=== PATIENT | male | born 1955 | race Caucasian/White ===

== ENCOUNTER → 2017-11-15 | Outpatient (CLI) | payer BC ==
[~2017-11-15] MED LIST: AMLODIPINE BESY10 MG PO; AMLODIPINE BESYL5 MG PO; BISOPROLOL-HCT1 EAC1 PO; CRESTOR10 MG PO; NORCO 10-325 T1 EACH; NORCO 10-325 T1 EACH PO; PAXIL10 MG PO; TAMSULOSIN HCL0.4 MG PO; VESICARE5 MG PO; ZOCOR80 MG PO
--- NOTE | 2017-11-15 17:52 | Diagnostic Imaging Report ---
PROCEDURE:X-RAY ABDOMEN - KUB COMPARISON:07/06/2017. INDICATIONS:KIDNEY STONE CHECK UP FINDINGS: Bowel: No dilatation. Moderate burden of stool throughout the colon particularly the hepatic and splenic flexures. Calcifications: Two calculi in the mid and lower pole of the left kidney measure up to 3 mm. There is a punctate calculus in the lower pole the right kidney. No calculi along the expected course of the ureters. Lung bases: Clear. Bones: Degenerative changes of the right hip are stable. Left hip prosthesis is stable. CONCLUSION: Two calculi in the left kidney and a single calculus in the right kidney as described above. Dictated by: Jrery Adams M.D. on 11/15/2017 at 17:52 Electronically approved by: Jerry Adams M.D. on 11/15/2017 at 17:52
== END | disposition home or self-care (01) ==
LOC: RAD 13:47
PROVIDERS: ATTEND Urology
DX: N20.0 Calculus of kidney (principal)
CPT/HCPCS: 74018

== ENCOUNTER → 2017-12-29 | Outpatient (CLI) | payer BC ==
--- NOTE | 2017-12-29 12:23 | Diagnostic Imaging Report ---
PROCEDURE:ABDOMEN-1VIEW (KUB) TECHNIQUE:Supine AP abdomen totaling 2 radiographs INDICATION:Kidney stones COMPARISON:Patients [facility], DX, ABDOMEN-1VIEW (KUB), 11/15/2017, 14:39. FINDINGS: See conclusion. CONCLUSION: 1. Stable 3 mm stones at the left mid and inferior pole and right inferior pole. No new conspicuous calcifications. 2. Large stool volume. 3. No ascites organomegaly. Intact skeleton. Dictated by: Vitor Napier M.D. on 12/29/2017 at 12:24 Electronically approved by: Vitor Napier M.D. on 12/29/2017 at 12:24
== END ==
LOC: RAD 10:24
PROVIDERS: ATTEND Urology
DX: N20.0 Calculus of kidney (principal)
CPT/HCPCS: 74018

== ENCOUNTER → 2018-03-24 | Outpatient (CLI) | payer BC ==
--- NOTE | 2018-03-24 18:22 | Diagnostic Imaging Report ---
PROCEDURE:X-RAY ABDOMEN - KUB COMPARISON:None. INDICATIONS:CALCULUS OF THE KIDNEY FINDINGS: Nonobstructive bowel gas pattern. Stable 3 mm radiopaque nonobstructing calculi in the mid and inferior aspect of the left renal shadow and inferior pole of the right renal shadow. Stable 2 mm nonobstructing calculus in the mid aspect of the right renal shadow. No radiopaque densities project over the expected course of the ureters or bladder. No acute bony abnormalities. Left total hip replacement. CONCLUSION: Stable bilateral, nonobstructive renal stone burden. Teofilo Corrales M.D. Dictated by: Teofilo Corrales M.D. on 03/24/2018 at 18:27 Electronically approved by: Teofilo Corrales M.D. on 03/24/2018 at 18:27
== END ==
LOC: RAD 12:20
PROVIDERS: ATTEND Urology
DX: N20.0 Calculus of kidney (principal)
CPT/HCPCS: 74018

== ENCOUNTER 2018-07-23 17:56 | Emergency (ER) | payer BC ==
[~2018-07-23] VITALS: Ht 172.7 cm; Wt 81.6 kg
--- OUTSIDE RECORDS SUMMARY | 2018-07-23 18:00 | XMS REPORT ---
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 Allergies, Adverse Reactions, Alerts This patient has no known allergies or adverse reactions. Medications This patient has no known medications. Results Test Description Test Time Test Comments Text Results Atomic Results Result Comments ABDOMEN-1VIEW (KUB) 2018-03-24 18:27:00 [place] [address] Patient Name: PITA WHEELER MR #: [id number] : 1955 Age/Sex: 62/M Req #: [id number] Adm Physician: Ordered by: JOVANA MATHEW MD Report #: [id number] Location: [facility] Room/Bed: Procedure: [id number] DX/ABDOMEN-1VIEW (KUB) Exam Date: 03/24/18 Exam Time: 1240 REPORT STATUS: Signed PROCEDURE: X-RAY ABDOMEN - KUB COMPARISON: None. INDICATIONS: CALCULUS OF THE KIDNEY FINDINGS: Nonobstructive bowel gas pattern. Stable 3 mm radiopaque nonobstructing calculi in the mid and inferior aspect of the left renal shadow and inferior pole of the right renal shadow. Stable 2 mm nonobstructing calculus in the mid aspect of the right renal shadow. No radiopaque densities project over the expected course of the ureters or bladder. No acute bony abnormalities. Left total hip replacement. CONCLUSION: Stable bilateral, nonobstructive renal stone burden. Yuriy Corrales M.D. Dictated by: Yuriy Corrales M.D. on 03/24/2018 at 18:27 Electronically approved by: Yuriy Corrales M.D. on 03/24/2018 at 18:27 Dictated By: YURIY CORRALES MD 26 Transcribed By: ADRIEN on 03/24/181826 COPY TO: JOVANA MATHEW MD ABDOMEN-1VIEW (KUB) [place] [address] Patient Name: PITA WHEELER MR #: [id number] : 1955 Age/Sex: 61/M Req #: [id number] Adm Physician: Ordered by: JOVANA MATHEW MD Report #: [id number] Location: [facility] Room/Bed: Procedure: [id number] DX/ABDOMEN-1VIEW (KUB) Exam Date: 12/29/17 Exam Time: 1020 REPORT STATUS: Signed PROCEDURE: ABDOMEN-1VIEW (KUB) TECHNIQUE: Supine AP abdomen totaling 2 radiographs INDICATION: Kidney stones COMPARISON: [facility], DX, ABDOMEN-1VIEW (KUB), 11/15/2017, 14:39. FINDINGS: See conclusion. CONCLUSION: 1. Stable 3 mm stones at the left mid and inferior pole and right inferior pole. No new conspicuous calcifications. 2. Large stool volume. 3. No ascites organomegaly. Intact skeleton. Dictated by: Leighann Napier M.D. on 12/29/2017 at 12:24 Electronically approved by: Leighann Napier M.D. on 12/29/2017 at 12:24 Dictated By: LEIGHANN NAPIER MD 1224 Transcribed By: ADRIEN on 12/29/17 1224 COPY TO: JOVANA MATHEW MD ABDOMEN-1VIEW (KUB) [place] [address] Patient Name: PITA WHEELER MR #: [id number] : 1955 Age/Sex: 61/M Req #: [id number] Adm Physician: Ordered by: JOVANA MATHEW MD Report #: [id number] Location: [facility] Room/Bed: Procedure: [id number] DX/ABDOMEN-1VIEW (KUB) Exam Date: 11/15/17 Exam Time: 1346 REPORT STATUS: Signed PROCEDURE: X-RAY ABDOMEN - KUB COMPARISON: 07/06/2017. INDICATIONS: KIDNEY STONE CHECK UP FINDINGS: Bowel: No dilatation. Moderate burden of stool throughout the colon particularly the hepatic and splenic flexures. Calcifications: Two calculi in the mid and lower pole of the left kidney measure up to 3 mm. There is a punctate calculus in the lower pole the right kidney. No calculi along the expected course of the ureters. Lung bases: Clear. Bones: Degenerative changes of the right hip are stable. Left hip prosthesis is stable. CONCLUSION: Two calculi in the left kidney and a single calculus in the right kidney as described above. Dictated by: Rita Adams M.D. on 11/15/2017 at 17:52 Electronically approved by: Rita Adams M.D. on 11/15/2017 at 17:52 Dictated By: RITA ADAMS MD 51 Transcribed By: ADRIEN on 11/15/171751 COPY TO: JOVANA MATHEW MD ABDOMEN-1VIEW (KUB) [place] [address] Patient Name: PITA WHEELER MR #: [id number] : 1955 Age/Sex: 61/M Req #: [id number] Adm Physician: Ordered by: JOVANA MATHEW MD Report #: [id number] Location: [facility] Room/Bed: Procedure: [id number] DX/ABDOMEN-1VIEW (KUB) Exam Date: Exam Time: REPORT STATUS: Signed EXAM: Abdomen 2 Views INDICATION: COMPARISON: KUB dated 12/04/2016 FINDINGS: Nonobstructive bowel gas pattern. No signs of pneumoperitoneum. Bilateral renal calculi are again seen, the largest in right inferior pole measuring 9 mm. No acute osseous abnormality. Degenerative changes of right hip. A status post left hip arthroplasty. IMPRESSION: 1. Bilateral renal calculi, the largest on today's exam measures 9 mm in the right inferior pole. 2. Nonobstructive bowel gas pattern. Signed by: Dr. Kartik Rodriguez MD on 07/06/2017 12:33 PM Dictated By: KARTIK RODRIGUEZ MD 123 Transcribed By: CAROLINA on 07/06/17 123 COPY TO: JOVANA MATHEW MD
--- OUTSIDE RECORDS SUMMARY | 2018-07-23 18:00 | XMS REPORT | Clinical Summary ---
Author Author [facility] Address Unknown Phone Unavailable Care Team Providers Care Grey Tender Name Role Phone Ellen Clark DO PCP Allergies No Known Allergies Medications No known medications Active Problems Not on file Social History Date Tobacco Use Types Packs/Day Years Used Former Smoker Smokeless Tobacco: Chew Current User Alcohol Use Drinks/Week oz/Week Comments No Sex Assigned at Date Recorded Not on file Industry Job Start Date Occupation Not on file Not on file Not on file Travel End Travel History Travel Start No recent travel history available. Last Filed Vital Signs Not on file Plan of Treatment Health Maintenance Due Date Last Done Comments COLON CANCER SCREENING 2004 SHINGRIX VACCINE (1 of 2) 2004 ZOSTER VACCINE 2014 INFLUENZA VACCINE 04/06/2018 Results Not on fileafter 07/22/2017 Insurance Payer Benefit Subscriber ID Type Phone Address Plan / Group CIGNA CIGNA xxxxxxxxxxx HMO HMO/POS Advance Directives Patient has advance care planning documents on file. For more information, momo e contact: [facility] Damon [address] [place] [address]
[2018-07-23 19:16] LABS: BILIRUBIN,URINE NEGATIVE (NEGATIVE); CLARITY,URINE CLEAR (CLEAR); COLOR,URINE YELLOW (YELLOW); KETONES,URINE NEGATIVE (NEGATIVE); LEUKOCYTE ESTERASE ,URINE NEGATIVE (NEGATIVE); NITRITE,URINE NEGATIVE (NEGATIVE); PROTEIN,URINE DIPSTICK NEGATIVE (NEGATIVE); URINE UROBILINOGEN 0.2 mg/dL (0.2 - 1)
[2018-07-23 19:28] LABS: AMORPHOUS SEDIMENT,URINE FEW (FEW); BACTERIA,URINE FEW /HPF; EPITHELIAL CELLS,URINE RARE /LPF; WBC,URINE (MAN) 0-5 /HPF (0-5)
[2018-07-23] MEDS ORDERED: KETOROLAC TROMETHAMINE 30 MG/ML VIAL IV STA (19:37)
[2018-07-23] MEDS ORDERED: ONDANSETRON HCL INJ 2 MG/ML VIAL IV STA (19:37)
[2018-07-23 19:58] LABS: BASOPHILS % 0.6 % (0.0-1.0); EOSINOPHILS # (AUTO) 0.2 (0.0-0.4); EOSINOPHILS % 3.1 % (0.0-6.0); HEMATOCRIT 51.6 % (38.2-49.6); HEMOGLOBIN 17.4 g/dL (14.0-18.0); LYMPHOCYTES # (AUTO) 1.7 (1.0-3.2); LYMPHOCYTES % 25.5 % (18.0-39.1); MEAN CORPUSCULAR HEMOGLOBIN 30.9 pg (28-32); MEAN CORPUSCULAR HGB CONC 33.7 g/dL (31-35); MEAN CORPUSCULAR VOLUME 91.7 fL (81-99); MONOCYTES # (AUTO) 0.4 (0.2-0.8); MONOCYTES % 6.8 % (4.4-11.3); NEUTROPHILS # (AUTO) 4.1 (2.1-6.9); NEUTROPHILS % 63.5 % (38.7-80.0); PLATELET COUNT 138 x10e3/uL (140-360); RED BLOOD COUNT 5.63 x10e6/uL (4.3-5.7)
--- NOTE | 2018-07-23 20:18 | Diagnostic Imaging Report ---
EXAM: CT ABDOMEN AND PELVIS without IV CONTRAST INDICATION: Left flank pain radiating to left groin COMPARISON: CT of the abdomen and pelvis without IV contrast June 20, 2012 TECHNIQUE: The abdomen and pelvis were scanned using a multidetector helical scanner. Coronal and sagittal reformations were obtained. Dose modulation, iterative reconstruction, and/or weight based adjustment of the mA/kV was utilized to reduce the radiation dose to as low as reasonably achievable. Renal stone protocol performed. IV Contrast: None Oral Contrast: None CTDIvol has been reviewed. It is below the limits set by the Radiation Protocol Committee (RPC). FINDINGS: LOWER THORAX: No consolidations LIVER: No masses BILIARY: Normal gallbladder. No ductal dilation. SPLEEN: No masses PANCREAS: No masses ADRENALS: No nodules RIGHT KIDNEY: There are at least 6 stones throughout the right kidney, the largest is in the inferior pole measuring 3 mm. No hydronephrosis. No ureteral stones. LEFT KIDNEY: There are greater than 10 stones throughout the left kidney. The largest is in the superior pole measuring 3 mm. No hydronephrosis. No ureteral stones. GI TRACT: No wall thickening or obstruction. VESSELS: Mild atherosclerotic changes of the abdominal aorta without aneurysm. PERITONEUM/RETROPERITONEUM: No free air or fluid LYMPH NODES: No lymphadenopathy REPRODUCTIVE ORGANS: Normal BLADDER: Normal SOFT TISSUES: Normal BONES: Left hip arthroplasty. IMPRESSION: Bilateral nephrolithiasis. No hydronephrosis. Signed by: Dr. Sofía Bright M.D. on 07/23/2018 8:15 PM
[2018-07-23 20:22] LABS: ALANINE AMINOTRANSFERASE 19 IU/L (0-55); ALBUMIN 3.6 g/dL (3.5-5.0); ALBUMIN/GLOBULIN RATIO 1.5 (0.8-2.0); ALKALINE PHOSPHATASE 50 IU/L (40-150); ANION GAP 14.4 mmol/L (8-16); BLOOD UREA NITROGEN 17 mg/dL (7-26); BUN/CREATININE RATIO 15 (6-25); CALCIUM 8.4 mg/dL (8.4-10.2); CARBON DIOXIDE 26 mmol/L (22-29); CHLORIDE 104 mmol/L (98-107); CREATININE, SERUM 1.16 mg/dL (0.72-1.25); EST GLOMERULAR FILTRATION RATE > 60 ML/MIN (60-); GLUCOSE 85 mg/dL (74-118); POTASSIUM 3.4 mmol/L (3.5-5.1); SODIUM 141 mmol/L (136-145)
== END 2018-07-23 20:59 | disposition home or self-care (01) ==
LOC: ER 17:56
DX: R10.32 Left lower quadrant pain (principal); R11.0 Nausea; M54.5 Low back pain; N20.0 Calculus of kidney; I10 Essential (primary) hypertension; E78.00 Pure hypercholesterolemia, unspecified
CPT/HCPCS: 36415; 74176; 80053; 81001; 85025; 99284; J1885; J2405

== ENCOUNTER → 2018-09-08 | Outpatient (CLI) | payer BC ==
--- NOTE | 2018-09-08 13:50 | Diagnostic Imaging Report ---
Exam: KUB - 2 views Clinical History: Known renal stones. Comparison: Renal ultrasound 07/25/[address] Abdomen/Pelvis 07/23/18 Findings: Bilateral 2 to 3 mm calcifications project over bilateral kidneys. Largest calcification measures 4 mm in the right lower pole kidney. No evidence of calcification overlying the expected location of the ureters. Partially seen post surgical changes status post left total hip arthroplasty. No acute osseous abnormality. Nonobstructive bowel gas pattern. Impression: Bilateral renal stones, largest measuring up to 4 mm in the right lower pole. Signed by: Dr. Virginia Kinsey MD on 09/08/2018 1:47 PM
== END ==
LOC: RAD 11:03
PROVIDERS: ATTEND Urology
DX: N20.0 Calculus of kidney (principal)
CPT/HCPCS: 74018

== ENCOUNTER → 2018-12-12 | Outpatient (CLI) | payer BC ==
--- NOTE | 2018-12-12 09:57 | Diagnostic Imaging Report ---
Exam: KUB. Clinical History: Calculus of kidney Comparison: September 08, 2018 Findings: Bilateral 2 to 3 mm calcifications project over bilateral kidneys. Largest calcification measures 4 mm in the right lower pole kidney. No evidence of calcification overlying the expected location of the ureters. Partially seen post surgical changes status post left total hip arthroplasty. No acute osseous abnormality. Nonobstructive bowel gas pattern. Impression: Bilateral renal stones, largest measuring up to 4 mm in the right lower pole. Signed by: Dr. Bishnu Cohen M.D. on 12/12/2018 9:54 AM
== END ==
LOC: RAD 09:20
PROVIDERS: ATTEND Urology
DX: N20.0 Calculus of kidney (principal)
CPT/HCPCS: 74018

== ENCOUNTER → 2019-03-06 | Outpatient (CLI) | payer BC ==
[~2019-03-06] MED LIST changes: +FENTANYL CITRATE/PF 100MCG/2 ML INJ ONE
--- NOTE | 2019-03-06 13:06 | Diagnostic Imaging Report ---
Exam: KUB-2 views Clinical History: Renal calculus. Comparison: KUB 12/12/2018. Findings: Bilateral 2 to 3 mm renal calcifications. Largest aggregate calcifications within the right lower pole kidney measures 7 mm. No evidence of calcification overlying the expected location of the ureters. Partially seen post surgical changes status post left total hip arthroplasty. No acute osseous abnormality. Nonobstructive bowel gas pattern. Impression: Bilateral nephrolithiasis as above. Signed by: Dr. Virginia Kinsey MD on 03/06/2019 1:03 PM
== END ==
LOC: RAD 11:41
PROVIDERS: ATTEND Urology
DX: N20.0 Calculus of kidney (principal)
CPT/HCPCS: 74018

== ENCOUNTER → 2019-07-31 | Outpatient (CLI) | payer BC ==
[~2019-07-31] MED LIST changes: -FENTANYL CITRATE/PF 100MCG/2 ML INJ ONE
--- NOTE | 2019-07-31 11:41 | Diagnostic Imaging Report ---
Exam: KUB - 2 views Indication: Renal calculus Comparison: Multiple prior KUBs most recently of 03/06/2019 Findings: Again seen are multiple bilateral renal calculi, measuring up to 7 mm at the right lower pole and 3 mm at the left upper pole. These appear essentially unchanged compared to the prior KUB of 03/06/2019. Nonobstructive bowel gas pattern. No free air. Status post left total hip replacement. Moderate degenerative changes of the [place] right hip joint. Minimally visualized lung bases appear clear. Impression: Unchanged bilateral renal calculi measuring up to 7 mm on the right and 3 mm on the left. Signed by: Vince Lopez MD on 07/31/2019 11:38 AM
== END ==
LOC: RAD 11:00
PROVIDERS: ATTEND Urology
DX: N20.0 Calculus of kidney (principal)
CPT/HCPCS: 74018

== ENCOUNTER → 2020-01-22 | Outpatient (CLI) | payer MEDICARE ==
--- NOTE | 2020-01-22 10:32 | Diagnostic Imaging Report ---
Abdomen, 1 view. History: History of kidney stones. Comparison: 09/15/2019. Findings: Air is scattered throughout nondilated small and large bowel. Small calcific densities are again seen projected over the lower pole of the right kidney and mid and upper region of the left kidney without significant change.. The osseous structures are intact. Left hip replacement is again noted. IMPRESSION: Bilateral small renal calculi without significant change. Signed by: Alli Bowling on 01/22/2020 10:29 AM
== END ==
LOC: RAD 10:00
PROVIDERS: ATTEND Urology
DX: N20.0 Calculus of kidney (principal)
CPT/HCPCS: 74018

== ENCOUNTER 2020-06-18 10:03 | Emergency (ER) | payer MEDICARE ==
[~2020-06-18] VITALS: Ht 172.7 cm; Wt 81.6 kg
[2020-06-18] MEDS ORDERED: KETOROLAC TROMETHAMINE 30 MG/ML VIAL IV STA (10:29)
[2020-06-18] MEDS ORDERED: METOCLOPRAMIDE HCL 10 MG/2ML VIAL IV ONE (10:30)
[2020-06-18] MEDS ORDERED: DIPHENHYDRAMINE HCL INJ 50 MG/ML VIAL IV ONE (10:30)
[2020-06-18 11:25] LABS: BASOPHILS % 0.4 % (0.0-1.0); EOSINOPHILS % 0.3 % (0.0-6.0); HEMATOCRIT 51.3 % (38.2-49.6); HEMOGLOBIN 16.8 g/dL (14.0-18.0); LYMPHOCYTES # (AUTO) 0.7 (1.0-3.2); LYMPHOCYTES % 7.9 % (18.0-39.1); MEAN CORPUSCULAR HEMOGLOBIN 30.7 pg (28-32); MEAN CORPUSCULAR HGB CONC 32.7 g/dL (31-35); MEAN CORPUSCULAR VOLUME 93.8 fL (81-99); MONOCYTES # (AUTO) 0.5 (0.2-0.8); NEUTROPHILS # (AUTO) 7.9 (2.1-6.9); PLATELET COUNT 162 x10e3/uL (140-360); RED BLOOD COUNT 5.47 x10e6/uL (4.3-5.7); RED CELL DISTRIBUTION WIDTH 12.8 % (11.7-14.4)
--- NOTE | 2020-06-18 11:35 | Diagnostic Imaging Report ---
CT BRAIN WO HISTORY: Headache COMPARISON: None. TECHNIQUE: Noncontrast axial scans were obtained from skull base to the vertex. Coronal and sagittal reconstructions obtained from the axial data. One or more of the following dose reduction techniques were used: Automated exposure control, adjustment of the mA and/or kV according to patient size, and/or utilization of iterative reconstruction technique. DISCUSSION: Scalp/Skull: Right mastoidectomy changes. Otherwise, unremarkable. Brain sulci: Appropriate for patient's age. Ventricles: Normal in size and configuration. No hydrocephalus. Extra-axial spaces: No masses or fluid collections. Mild carotid siphon and vertebral artery calcifications are present. Parenchyma: Mild periventricular white matter hypodensities are likely chronic microvascular ischemic changes. Otherwise, no mass, hemorrhage, or large vascular territory acute infarct. Dural sinuses: No abnormal densities. Sellar/Suprasellar region: Intact. Skull base: Intact. Incidental findings: None. IMPRESSION: 1. No acute intracranial abnormalities. 2. Mild supratentorial chronic microvascular ischemic change. Signed by: Dr. Eric Haddad M.D. on 06/18/2020 11:32 AM
[2020-06-18 11:36] LABS: INR 0.97; PROTHROMBIN TIME 13.4 seconds (11.9-14.5)
--- OUTSIDE RECORDS SUMMARY | 2020-06-18 11:36 | XMS REPORT | Continuity of Care Document ---
Author Author [facility] t Organization [facility] Address [address] [place] [address] Phone Unavailable Care Team Providers Care Technician Anatomic Pathology Name Role Phone NONSTAFF PCP Unavailable RASHEL MATHEW Attphys Unavailable Larissa AGUIRRE, CEv Kiser Attphys Onesimo AGUIRRE, Haylee Au Attphys Noy AGUIRRE, James Cosby Attphys [phone] NELA ARREDONDO Attphys Unavailable Lanny MONSON Attphys Unavailable Payers Payer Name Policy Type Policy Number Effective Date Expiration Date S patricia BCBSBCBS CHOICE PPO/FEDERAL EMPL [id number] esentPPO [id number] 2019 00:00:00 [facility] Ppo [id number] 2008 00:00:00 [facility] Problems Condition Name Condition Details Condition Category Status Onset Date Resolution Date Last Treatment Date Treating Clinician Comments Source Calculus of kidney Calculus of kidney Disease Active 2019-08-16 00:00:0 0 [facility] Intractable vomiting Intractable vomiting Disease [facility] Problem Active [facility] Renal insufficiency Renal insufficiency Problem Active [facility] Urinary tract infection Urinary tract infection Problem Active [facility] Allergies, Adverse Reactions, Alerts Allergy Name Allergy Type Status Severity Reaction(s) Onset Date Inacti ve Date Treating Clinician Comments Source doxycycline DA Active U 2019-07-10 00:00:00 [facility] rifampin DA Active [place] 2019-07-10 00:00:00 [facility] doxycycline DA Active U 2019-07-07 00:00:00 [facility] Doxycycline Propensity to adverse reactions to drug Active 2019-03-16 00:00:00 Pt. states medicatio ns caused him to have body aches, nausea, and vomiting, shakes,and chills. Also hasn't been able to sleep. Rash Flaquito Damon Rifampin Propensity to adverse reactions to drug Active 2019-03-16 00:00:00 Pt. states medications cause d him to have body aches, nausea, and vomiting, shakes,and chills. Also hasn't been able to sleep. Rash Flaquito Damon No Known Drug Allergies DA Active U 2016-07-17 00:00:00 [facility] Family History Family Member Diagnosis Comments Start Date Stop Date Source Natural father Alzheimer's disease Shira Damon Natural mother Stroke [facility] Social History Social Habit Start Date Stop Date Quantity Comments Source History of tobacco use Cigarette Smoker Flaquito Damon Sex [facility] Cigarettes smoked current (pack per day) - Reported 00:00:00 2019-08-16 00:00:00 Flaquito Damon Cigarette pack-years 2019-08-16 00:00:00 2019-08-16 00:00:00 Flaquito Damon Tobacco use and exposure 2019-08-16 00:00:00 2019-08-16 00:00:00 Form er user Flaquito Damon Alcohol intake 2019-08-16 00:00:00 2019-08-16 00:00:00 Current drinker of alcohol (finding) Flaquito Damon Tobacco Comment 2019-08-10 00:00:00 2019-08-10 00:00:00 states quit 40 yrs ago lFaquito Damon Alcohol Comment 2019-08-10 00:00:00 2019-08-10 00:00:00 socially Flaquito Damon Smoking Status Start Date Stop Date Source Former smoker 2019-08-16 00:00:2019-08-16 00:00:00 Flaquito Damon Medications Ordered Medication Name Filled Medication Name Start Date Stop Da te Current Medication? Ordering Clinician Indication Dosage Frequency Signature (SIG) Comments Components Source amLODIPine (NORVASC) 10 mg tablet 2019-08-16 14:51:16 Yes 10mg QD Take 10 mg by mouth nightly. Flaquito muñiz escitalopram (LEXAPRO) 10 MG tablet 2019-08-16 14:51:16 Yes 10mg QD Take 10 mg by mouth every morning. Flaquito Borges ethodist rosuvastatin (CRESTOR) 10 MG tablet 2019-08-16 14:51:16 Yes 10mg QD Take 10 mg by mouth nightly. Flaquito Ruiz t potassium citrate (UROCIT-K) 10 mEq (1,080 mg) CR tablet 2019-02-20 00:00:00 Yes 10meq QD Take 10 mEq by mouth every morni ng. Flaquito Damon Amlodipine Besylate 10 Mg Tablet Amlodipine Besylate 10 Mg Tablet Yes 10 Daily [facility] Rosuvastatin Calcium (Crestor) 10 Mg Tab Rosuvastatin Calcium (Crestor) 10 Mg Tab Yes Bedtime [facility] Amlodipine Besylate 5 Mg Tablet, Unknown Dose Oral Am lodipine Besylate 5 Mg Tablet, Unknown Dose Oral 2016-02-15 00:00:00 No Daily [facility] Bisoprolol Fumarate/Hctz (Bisoprolol-Hct z 5-6.25 Mg Tab) 1 Each Tablet, Mg Oral Bisoprolol Fumarate/Hctz (Bisoprolol-Hct z 5-6.25 Mg Tab) 1 Each Tablet, Mg Oral 2015-07-19 00:00:00 No Bedtime [facility] Hydrocodone Bit/Acetaminophen ([place] 10-325 Tablet) 1 Each Tablet, Hydrocodone Bit/Acetaminophen ([place] 10-325 Tablet) 1 Each Tablet, 2015-07-07 3 00:00:00 No As Needed [facility] Paroxetine Hcl (Paxil) 10 Mg Tablet, Mg Oral Paroxeti ne Hcl (Paxil) 10 Mg Tablet, Mg Oral 2015-07-19 00:00:00 No Daily [facility] Simvastatin (Zocor) 80 Mg Tablet, Mg Oral Simvastatin (Zocor) 80 Mg Tablet, Mg Oral 2015-07-19 00:00:00 No Bedtime [facility] Solifenacin Succinate (Vesicare) 5 Mg Tablet, Oral S olifenacin Succinate (Vesicare) 5 Mg Tablet, Oral 2015-07-19 00:00:00 No Daily [facility] Tamsulosin Hcl 0.4 Mg Cap.er.24h, Mg Oral Tamsulosin Hcl 0.4 Mg Cap.er.24h, Mg Oral 2015-07-19 00:00:00 No Daily [facility] Hydrocodone Bit/Acetaminophen ([place] 10-325 Tablet) 1 Each Tablet, Oral Hydrocodone Bit/Acetaminophen ([place] 10-325 Tablet) 1 Each Tablet, Oral 2012-07-19 00:00:00 No Every 4 Hours [facility] Vital Signs Vital Name Observation Time Observation Value Comments Source Systolic blood pressure 2019-08-16 14:47:00 149 mm[Hg] Flaquito Damon Diastolic blood pressure 2019-08-16 14:47:00 97 mm[Hg] Flaquito Damon Heart rate 2019-08-16 14:47:00 70 /min Flaquito Damon Respiratory rate 2019-08-16 14:47:00 18 /min Favian Damon Oxygen saturation in Arterial blood by Pulse oximetry 2018-09 14:47:00 97 /min Flaquito Damon Body temperature 2019-08-16 14:14:00 36.44 Tatyana Favian Damon Body height 2019-08-16 10:59:00 172.7 cm Flaquito Damon Body weight 2019-08-16 10:59:00 87.726 kg Flaquito Damon BMI 2019-08-16 10:59:00 29.41 kg/m2 Flaquito Damon Procedures Procedure Date / Time Performed Performing Clinician Sourc e [place] AN ELECTIVE SUPRAGLOTTIC AIRWAY 2019-08-16 13:08:05 Abdelrahman Armenta EXTRACORPOREAL SHOCKWAVE LITHOTRIPSY (ESWL) 2019-08-16 12:57 :00 Rashel Mathew XR ABDOMEN 1 VW 2019-08-11 11:27:26 Rashel Mathew ethodist URINE CULTURE 2019-08-11 11:25:00 Camilo Woods GRAM STAIN 2019-08-11 11:25:00 Camilo Woods ECG 12-LEAD 2019-08-11 10:36:39 Camilo Woods URINALYSIS SCREEN AND MICROSCOPY, WITH REFLEX TO CULTURE 201 05-18-06 10:12:00 Camilo Woods HC COMPLETE BLD COUNT W/AUTO DIFF 2019-08-11 10:12:00 Ravi Woods HEMOGLOBIN A1C 2019-08-11 10:12:00 Camilo Woods TYPE AND SCREEN 2019-08-11 10:12:[address] of abdomen and pelvis without contrast 2018-07-23 00:00:0 0 SONIDO COLUNGA [facility] Plan of Care Planned Activity Planned Date Details Comments Source Future Scheduled Test 2020-04-06 00:00:00 INFLUENZA VACCINE [code = INFLUENZA VACCINE] [facility] Future Scheduled Test 2020-01-01 00:00:00 65+ PNEUMOCOCCAL V ACCINE (1 of 1 - PPSV23) [code = 65+ PNEUMOCOCCAL VACCINE (1 of 1 - PPSV23)] [facility] Future Scheduled Test 2004 00:00:00 COLONOSCOPY SCREEN ING [code = COLONOSCOPY SCREENING] [facility] Future Scheduled Test 2004 00:00:00 SHINGLES VACCINES (#1) [code = SHINGLES VACCINES (#1)] Flaquito Damon Encounters Start Date/Time End Date/Time Encounter Type Admission Type [facility] Care Department Encounter ID Source 2018-07-23 17:56:00 2018-07-23 20:59:00 Departed Emergency Room [address] [facility] [id number] [facility] 2018-03-24 12:20:00 2018-03-24 12:20:00 Registered Clinic [address] [facility] [id number] [facility] 2017-12-29 10:24:00 2017-12-29 10:24:00 Registered Clinic EL RASHEL MATHEW [facility] [id number] [facility] 2017-11-15 13:47:00 2017-11-15 13:47:00 Registered Clinic [address] [id number] [facility] Results Test Description Test Time Test Comments Results Result Comments Source ABDOMEN-1VIEW (KUB) 2020-04-18 09:07:00 [place] [address] Patient Name: PITA AUGUSTIN MR #: [id number] : 1955 Age/Sex: 64/M Req #: [id number] Adm Physician: Ordered by: RASHEL MATHEW MD Report #: [id number] Location: [facility] Room/Bed: Procedure: [id number] DX/ABDOMEN-1VIEW (KUB) Exam Date: 04/18/20 Exam Time: 0850 REPORT STATUS: Signed Exam: KUB - 2 views Indication: Renal calculi Comparison: Multiple prior KUBs, most recently 01/22/2020 Findings: No significant interval change in appearance of multiple scattered approximately 3 mm left renal calculi predominantly at the upper and mid pole and several right lower pole renal calculi which measure up to 3 mm. Nonobstructive bowel gas pattern. No free air. No acute osseous injury. Postoperative findings of left total hip replacement. Moderate degenerative changes of the huslia right hip joint. Impression: Unchanged bilateral renal calculi as above. Signed by: Maris Cat MD on 04/18/2020 9:09 AM Dictated By: MARIS CAT MD 8 Transcribed By: CAROLINA on 04/18/20908 COPY TO: RASHEL MATHEW MD ABDOMEN-1VIEW (KUB) 2020-01-22 10:26:00 [place] [address] Patient Name: PITA AUGUSTIN MR #: [id number] : 1955 Age/Sex: 64/M Req #: [id number] Adm Physician: Ordered by: RASHEL MATHEW MD Report #: [id number] Location: [facility] Room/Bed: Procedure: [id number] DX/ABDOMEN-1VIEW (KUB) Exam Date: 01/22/20 Exam Time: 1007 REPORT STATUS: Signed Abdomen, 1 view. History: History of kidney stones. Comparison: 09/15/2019. Findings: Air is scattered throughout nondilated small and large bowel. Small calcific densities are again seen projected over the lower pole of the right kidney and mid and upper region of the left kidney without significant change.. The osseous structures are intact. Left hip replacement is again noted. IMPRESSION: Bilateral small renal calculi without significant change. Signed by: Alli Bowling on 01/22/2020 10:29 AM Dictated By: ALLI BOWLING MD 1029 Transcribed By: CAROLINA on 01/22/20 1029 COPY TO: RASHEL MATHEW MD ABDOMEN-1VIEW (KUB) 2019-09-15 13:19:00 [place] [address] Patient Name: PITA AUGUSTIN MR #: [id number] : 1955 Age/Sex: 63/M Req #: [id number] Adm Physician: Ordered by: RASHEL MATHEW MD Report #: [id number] Location: [facility] Room/Bed: Procedure: [id number] DX/ABDOMEN-1VIEW (KUB) Exam Date: 09/15/19 Exam Time: 1235 REPORT STATUS: Signed Exam: KUB - 2 views Indication: Renal calculi Comparison: Multiple prior KUBs, most recently 07/31/2019 Findings: Again seen are multiple bilateral renal calculi, with a cluster of renal calculi at the right lower pole entering up to 8 mm. Scattered 2 and 3 mm renal calculi at the left upper pole and left mid pole. Nonobstructive bowel gas pattern. No free air. Status post left total hip replacement. Moderate degenerative changes of the huslia right hip joint. Phleboliths in the pelvis. Impression: Bilateral renal calculi as above. Signed by: Maris Cat MD on 09/15/2019 1:21 PM Dictated By: MARIS CAT MD Elec tronically Signed By: MARIS CAT MD on 09/15/19 1321 Transcribed By: CAROLINA on 09/15/19 1321 COPY TO: RASHEL MATHEW MD Airway 2019-08-16 13:08:05 Fadi Armenta CRNA 08/16/2019 1:08 PMAirwayPerformed by: Fadi Armenta CRNAAuthorized by: Angely Echols MD Location: ORUrgency: ElectiveDifficult Airway: No Anesthesiologist: Angely Echols MDResigoyot/TEST BORE HELPER/AA: Fadi Armenta CRNAPerformed by: resident/TEST BORE HELPER/AAPreoxygenated with 100% O2: Yes Mask Ventilation: Not attemptedFinal Airway Type: Supraglottic airwayFinal LMA: UniqueLMA Size: 5Number of Attempts at Approach: 1 Atraumatic, teeth intact Flaquito Damon Urine culture 2019-08-14 23:08:54 Test Item Urine culture isolate (test code = 34662-4) Mixed alonso <=10-3 col/ cc Specimen InformationSpecimen Source: UrineSpecimen Site: Clean catch [facility] [id number] 23:08:54* Test Item Value Reference Range Interpretation Comments Gram stain result (test code = 664-3) No WBC's or organisms seen. Specimen InformationSpecimen Source: UrineSpecimen Site: Clean catch [facility]Type and [id number] 14:11:00* Test Item Value Reference Range Interpretation Comments ABO grouping (test code = 883-9) O Rh type (test code = 57818-9) POS Antibody screen (test code = 890-4) NEG [facility] MethodistECG 12 [id number] 13:59:48* Test Item Value Reference Range Interpretation Comments Ventricular rate (test code = 253) 73 Atrial rate (test code = 255) 73 [place] interval (test code = 266) 176 QRSD interval (test code = 260) 84 QT interval (test code = 264) 378 QTC interval (test code = 265) 416 P axis 1 (test code = 267) 51 QRS axis 1 (test code = 268) 22 T wave axis (test code = 270) 37 EKG impression (test code = 273) Normal sinus rhythm-N ormal ECG-In automated comparison with ECG of 10-FEB-2019 07:42,-Nonspecific T wave abnormality no longer evident in Inferior leads-Nonspecific T wave abnormality no longer evide nt in Anterior leads- [place] MethodistXR Abdomen 1 [id number] 11:32:55Hm Interface, Radiology Results - 08/11/2019 11:36 AM CSTEXAMINATION: XR ABDOMEN 1 VWCLINICAL HISTORY: Z01.818 Encounter for other preprocedural examination, preopCOMPARISON: None.IMPRESSION:Nonspecific bowel gas pattern. No dilated loops of bowel. Severe osteoarthritic degenerative changes noted within the right hip. The patient is status post left hip arthroplasty.The lung bases are clear.[id number] MethodistHemoglobin [id number] 11:31:32* Test Item Value Reference Range Interpretation Comments Hemoglobin A1C (test code = 47349-9) 5.3 % 4-5.6 HbA1c cutoffs for diagnosing diabetes:4.0% - 5.6% = normal5.7% - 6.4% = increased risk for diabetes (prediabetes)9>=6.5% = [id number] for glycemic control (ADA 2016)< 7.0% Target for non adults with diabetes. More or less stringent targets may be appropriate for individual patients. <7.5% Target for Children and adolescents with type 1 diabetes. [place] MethodistCBC with platelet and [id number] 11:26:15* Test Item Value Reference Range Interpretation Comments WBC (test code = 97589-1) 5.67 4.50- 11.00 k/uL RBC (test code = 68314-9) 6.42 m/uL 4.4-6 H HGB (test code = 718-7) 18.6 g/dL 14-18 H HCT (test code = 4544-3) 57.9 % 41-51 H MCV (test code = 787-2) 90.2 fL 82-100 MCH (test code = 785-6) 29.0 pg 27-34 MCHC (test code = 786-4) 32.1 g/dL 31-37 RDW - SD (test code = 80301-9) 42.2 fL 37-55 MPV (test code = 91398-9) 11.3 fL 8.8-13.2 Platelet count (test code = 26245-0) 142 150- 400 k/uL L Nucleated RBC (test code = 07794-3) 0.00 /100 WBC Neutrophils (test code = 91367-6) 67.9 % 39-69 Lymphocytes (test code = 44380-4) 19.4 % 25-45 L Monocytes (test code = 09618-5) 9.0 % 0-10 Eosinophils (test code = 24224-3) 2.8 % 0-5 Basophils (test code = 61246-9) 0.5 % 0-1 Lab Interpretation (test code = 06263-4) Abnormal [facility] MethodistUrinalysis screen and microscopy, with reflex to culture 2019-08-11 11:25:46* Test Item Value Reference Range Interpretation Comments Specimen site (test code = 1235823) Clean catch Color, UA (test code = 5778-6) Yellow Appearance, UA (test code = 5767-9) Clear Specific gravity, UA (test code = 5811-5) 1.015 1.001-1.035 pH, UA (test code = 5803-2) 7.0 5.0-8.5 Protein, UA (test code = 89652-2) Negative Negative Glucose, UA (test code = 81040-4) Negative Negative Ketones, UA (test code = 2514-8) Negative Negative Bilirubin, UA (test code = 5770-3) Negative Negative Blood, UA (test code = 5794-3) Negative Negative Nitrite, UA (test code = 5802-4) Negative Negative Urobilinogen, UA (test code = 23703-6) Negative <2.0 Leukocyte esterase, UA (test code = 5799-2) Negative Negative Epithelial cells, UA (test code = 5787-7) None seen Few /HPF Round epithelial cells, UA (test code = 01302-9) Few 0- 1 /HPF WBC, UA (test code = 5821-4) 6-10 0- 1 /HPF H RBC, UA (test code = 50090-7) 0-5 0- 5 /HPF Bacteria, UA (test code = 01455-5) None seen None seen Yeast, UA (test code = 83494-6) None seen Yeast with pseudohyphae, UA (test code = 18453-8) None seen Lab Interpretation (test code = 59520-3) Abnormal [facility]AB[facility] (KUB)2019-07-31 11:36:00 [place] [address] Patient Name: PITA AUGUSTIN MR #: [id number] : 1955 Age/Sex: 63/M Req #: [id number] Adm Physician: Ordered by: RASHEL MATHEW MD Report #: [id number] Location: [facility] Room/Bed: Procedure: [id number] DX/ ABDOMEN-1VIEW (KUB) Exam Date: Exam Time: REPORT STATUS: Signed Exam: KUB - 2 views Indication: Renal calculus Comparison: Multiple prior KUBs most rece ntly of 03/06/2019 Findings: Again seen are multiple bilateral renal calcu li, measuring up to 7 mm at the right lower pole and 3 mm at the left upper po le. These appear essentially unchanged compared to the prior KUB of 03/06/2019. Nonobstructive bowel gas pattern. No free air. Status post left total hip repl acement. Moderate degenerative changes of the huslia right hip joint. Minimall y visualized lung bases appear clear. Impression: Unchanged bilateral r enal calculi measuring up to 7 mm on the right and 3 mm on the left. Signed by: Maris Cat MD on 07/31/2019 11:38 AM Dictated By: MARIS CAT MD 1138 Transcribed By: CAROLINA on 07/31/19 1138 COPY TO: RASHEL MATHEW MD - XR FLUORO FOR SPINE [id number] 11:23:00 Patient Name: PITA AUGUSTIN Unit No: [id number] EXAMS: CPT CODE: [id number] XR FLUORO FOR SPINE INJ 27738 CERVICAL FACET INJECTION REFERRING PHYSICIAN: PREOPERATIVE DIAGNOSIS: 1. Cervical facet arthropathy POSTOPERATIVE DIAGNOSIS: 1. Left C2-3, left C3-4 cervical facet spondylosis without radiculopathy PROCEDURES PERFORMED Fluoroscopically guided needle localization of the left C2-3, left C3-4 cervical facets with injection of local anesthetic and steroids 2. Arthrograms of the left C2-3, left C3-4 cervical facets FINDINGS: 1. Concordant provocation left C2-3 facet for neck pain 100% relief ANTIBIOTIC: Cefazolin ESTIMATED BLOOD LOSS: Minimal ANESTHESIA:(TIVA) Total intravenous anesthetic (patient intolerant to sedatives and hypnotics) COMPLICATIONS: None DETAILS OF PROCEDURE: After obtaining stable vital signs, informed consent and IV access, with no known contraindications to proceeding, the patient was taken to the fluoroscopy suite and placed in a prone position with all extremities padded and appropriate monitors placed. A sterile prep and drape was performed over the cervical spine. Using fluoroscopic visualization at each level the insertion site was marked for a paravertebral approach to the facets. Using standard technique, a 25 gauge needle was advanced to the facets. In AP view, the needle was ad vanced into the facets. Then, 1 ml of Isovue-300 contrast was injected to produce the arthrograms. AP, lateral and oblique views were documented. No paresthesias were elicited with needle insertion or injection and there were no signs of intravascular or intrathecal uptake. Then, .5 ml of 0. 75% bupivacaine with .5 ml of 4% lidocaine and 10 mg of Decadron was inj ected incrementally with frequent negative aspirations. There were no sig ns of intravascular or intrathecal uptake. The patient's vital signs sha ined stable. Each subsequent level was done using the same technique and medications. The patient was taken to the PACU in good condition. [facility] NAME: PITA AUGUSTIN [address] [place] [address] PHYS: DOCUD - DoctorHank MD [place] [address] : 1955 AGE: 63 SEX: M LOC: [facility] PHONE #: [phone] EXAM DATE: 07/10/2019 STATUS: [facility] FA[place] #: [phone] RAD #: [id number] D/C DT PAGE 1 Signed Report (CONTINUED) Patient Name: PITA AUGUSTIN Unit No: [id number] EXAMS: CPT CODE: [id number] XR FLUORO FOR SPINE INJ 02562 <Continued> at 1123 Reported and signed by: Hank [place] M.D. CC: Technologist: Blanca [place](R) Transcribed D/ (1089) tGEOFFREYD [facility] NAME: PITA AUGUSTIN [address] [place] [address] PHYS: Hank Quintero MD [place], [place] [address] : 1955 AGE: 63 SEX: M LOC: [facility] PHONE #: [phone] EXAM DATE: 07/10/2019 STATUS: [facility] FAX #: [phone] RAD #: [id number] D/C DT PAGE 2 Signed Report Patient Name: PITA AUGUSTIN Unit No: [id number] EXAMS: CPT CODE: [id number] XR FLUORO FOR SPINE INJ 20614 <Continued> Orig Print D/T: S: 07/10/2019 (1126) [facility] [place] NAME: PITA AUGUSTIN [address] [facility] PHYS: Hank Quintero MD [place] [address] : 1955 AGE: 63 SEX: M LOC: [facility] PHONE #: [phone] EXAM DATE: 07/10/2019 STATUS: [facility] FAX #: [phone] RAD #: [id number] D/C DT PAGE 3 Signed Report ABDOMEN-1VIEW (KASEY)2019-03-06 13:00:00 [place] [address] Patient Name: PITA AUGUSTIN MR #: [id number] : 1955 Age/Sex: 63/M Req #: [id number] Adm Physician: Ordered by: RASHEL MATHEW MD Report #: [id number] Location: [facility] Room/Bed: Procedure: DX/ ABDOMEN-1VIEW (KUB) Exam Date: 03/06/19 Exam Time: 1 201 REPORT STATUS: Signed Exam: KUB-2 views Clinical History: Renal calculus. Comparison: KUB 9. Findings: Bilateral 2 to 3 mm renal calcifications. Largest aggrega te calcifications within the right lower pole kidney measures 7 mm. No evidenc e of calcification overlying the expected location of the ureters. Parti ally seen post surgical changes status post left total hip arthroplasty. No ac mary osseous abnormality. Nonobstructive bowel gas pattern. Impression: Bi lateral nephrolithiasis as above. Signed by: Dr. Ruma Lowe MD on 03/06/2019 1:03 PM Dictated By: RUMA LOWE MD 1303 Transcribed By: CAROLINA on 03/06/19 1303 COPY TO: RASHEL MATHEW MD ABDOMEN-1VIEW (KUB)2018-12-12 09:52:00 [place] [address] Patient Name: PITA AUGUSTIN MR #: [id number] : 1955 Age/Sex: 62/M Req #: [id number] Adm Physician: Ordered by: RASHEL MATHEW MD Report #: [id number] Location: [facility] Room/Bed: Procedure: [id number] DX/ ABDOMEN-1VIEW (KUB) Exam Date: 12/12/18 Exam Time: 0 925 REPORT STATUS: Signed Exa m: KUB. Clinical History: Calculus of kidney Comparison: September 08 Findings: Bilateral 2 to 3 mm calcifications project over bilateral kidneys. Largest calcification measures 4 mm in the right lower pole kidney. No evidence of calcification overlying the expected location of the ureters. P artially seen post surgical changes status post left total hip arthroplasty. N o acute osseous abnormality. Nonobstructive bowel gas pattern. Impression : Bilateral renal stones, largest measuring up to 4 mm in the right lower pole . Signed by: Dr. Chris Cohen M.D. on 12/12/2018 9:54 AM Dictated B y: CHRIS COHEN MD, MD 3 COPY TO: RASHEL MATHEW MD ABDOMEN-1VIEW (KUB)2018-09-08 13:43:00 [place] [address] Patient Name: PITA AUGUSTIN MR #: [id number] : 1955 Age/Sex: 62/M Req #: [id number] Adm Physician: Ordered by: RASHEL MATHEW MD Report #: [id number] Location: [facility] Room/Bed: Procedure: [id number] DX/ ABDOMEN-1VIEW (KUB) Exam Date: 09/08/18 Exam Time: 1 105 REPORT STATUS: Signed Exam: KUB - 2 views Clinical History: Known renal stones. Comparison: Renal ultrasound 07/25/[address] Abdomen/Pelvis 07/23/18 Findings: Bilateral 2 to 3 mm calcifications project over bilateral kidneys. Largest calcification measures 4 mm in the right lower pole kidney. No evidence of calcification ov erlying the expected location of the ureters. Partially seen post surgical rajesh nges status post left total hip arthroplasty. No acute osseous abnormality. No nobstructive bowel gas pattern. Impression: Bilateral renal stones, large st measuring up to 4 mm in the right lower pole. Signed by: Dr. Ruma Lowe MD on 09/08/2018 1:47 PM Dictated By: RUMA LOWE MD 46 Transcribed By: CAROLINA on 09/08/181346 COPY TO: RASHEL MATHEW MD US PELVIC (NON OB) ESCOBAR OR F/[id number] 14:37:00 [place] [address] Patient Name: PITA AUGUSTIN MR #: [id number] : 1955 Age/Sex: 62/M Req #: [id number] Adm Physician: Ordered by: NELA ARREDONDO MD Report #: [id number] Location: US Room/Bed: Procedure: [id number] US/ US PELVIC (NON OB) ESCOBAR OR F/U Exam Date: 07/25/18 Ex am Time: 1235 REPORT STATUS: Signed EXAM: Renal Ultrasound INDICATION: Chronic kidney disease. HOWARD RISON: None TECHNIQUE: Transverse and longitudinal images of the kidneys and bladder were obtained. Doppler images were obtained. FINDINGS: R ight Kidney: Length: Measures 10.9 x 5.5 x 5.5 cm Appearance: Mildly increa sed echogenicity. Normal vascular flow is noted. Collecting system: No hydrone phrosis Stones: Multiple renal calculi, measuring up to 5 mm in the mid pole. Cyst/Mass: None Left Kidney: Length: Measures 11.9 x 5.5 x 4 cm Alex earance: Mildly increased echogenicity. Normal vascular flow is noted. Collec ting system: No hydronephrosis Stones: Multiple renal calculi, measuring up to 3 mm in the lower pole. Cyst/Mass: None Bladder: Unremarkable appeara nce. Bilateral ureteral jets are present. IMPRESSION: Mildly hyperechoic appearance of the kidneys could reflect medical renal disease. Bilateral renal calculi measuring up to 5 mm. Signed by: Dr. Ruma Lowe MD on 07/07 2:43 PM Dictated By: RUMA LOWE MD 1445 Transcribed By: CAROLINA on 07/25/18 1441 COPY TO: NELA ARREDONDO MD US RENAL RETROPERITONEAL [id number] 14:37:00 [place] [address] Patient Name: PITA AUGUSTIN MR #: [id number] : 1955 Age/Sex: 62/M Req #: [id number] Adm Physician: Ordered by: NELA ARREDONDO MD Report #: [id number] Location: US Room/Bed: Procedure: [id number] US/ US RENAL RETROPERITONEAL COMP Exam Date: 07/25/18 Ex am Time: 1235 REPORT STATUS: Signed EXAM: Renal Ultrasound INDICATION: Chronic kidney disease. HOWARD RISON: None TECHNIQUE: Transverse and longitudinal images of the kidneys and bladder were obtained. Doppler images were obtained. FINDINGS: R ight Kidney: Length: Measures 10.9 x 5.5 x 5.5 cm Appearance: Mildly increa sed echogenicity. Normal vascular flow is noted. Collecting system: No hydrone phrosis Stones: Multiple renal calculi, measuring up to 5 mm in the mid pole. Cyst/Mass: None Left Kidney: Length: Measures 11.9 x 5.5 x 4 cm Alex earance: Mildly increased echogenicity. Normal vascular flow is noted. [facility] ting system: No hydronephrosis Stones: Multiple renal calculi, measuring up to 3 mm in the lower pole. Cyst/Mass: None Bladder: Unremarkable appeara nce. Bilateral ureteral jets are present. IMPRESSION: Mildly hyperechoic appearance of the kidneys could reflect medical renal disease. Bilateral renal calculi measuring up to 5 mm. Signed by: Dr. Ruma Lowe MD on 07/07 2:43 PM Dictated By: RUMA LOWE MD 1443 Transcribed By: CAROLINA on 07/25/18 1443 COPY TO: NELA ARREDONDO MD Sodium Zgwga7790-72-63 20:23:00* Test Item Value Reference Range Interpretation Comments Sodium Level (test code = 2951-2) 141 136-145 [facility] Cmicf0312-00-88 20:23:00* Test Item Value Reference Range Interpretation Comments Potassium Level (test code = 2823-3) 3.4 3.5-5.1 L [facility] CenterChloride Lzxor1297-60-47 20:23:00* Test Item Value Reference Range Interpretation Comments Chloride Level (test code = 2075-0) 104 98-107 [facility] CenterCarbon Dioxide Nenar9590-80-87 20:23:00* Test Item Value Reference Range Interpretation Comments Carbon Dioxide Level (test code = 2028-9) 26 22-29 [facility] CenterAnion Jbm8194-24-94 20:23:00* Test Item Value Reference Range Interpretation Comments Anion Gap (test code = 86077-2) 14.4 8-16 [facility] CenterBlood Urea Ehpzzdtg2499-43-04 20:23:00* Test Item Value Reference Range Interpretation Comments Blood Urea Nitrogen (test code = 3094-0) 17 7-26 [facility] CenterCreatinine2018-11-17 20:23:00* Test Item Value Reference Range Interpretation Comments Creatinine (test code = 2160-0) 1.16 0.72-1.25 [facility] CenterBUN/Creatinine Xquzh5097-56-20 20:23:00* Test Item Value Reference Range Interpretation Comments BUN/Creatinine Ratio (test code = 3097-3) 15 6-25 [facility] CenterEstimat Glomerular Filtration Rate 2018-07-23 20:23:00* Test Item Value Reference Range Interpretation Comments Estimat Glomerular Filtration Rate (test code = 279999895) > 60 >60 Ranges were taken from the National Kidney Disease Education Program and the [facility] Kidney Foundation literature.Reference ranges:60 or greater: Zirrra52-53 ( for 3 consecutive months): Chronic kidney disease 15 or less: Kidney failureShannon Medical CenterGlucose Edylr0441-37-20 20:23:00* Test Item Value Reference Range Interpretation Comments Glucose Level (test code = NZH6070) 85 74-118 [facility] CenterCalcium Yxhqt4872-39-02 20:23:00* Test Item Value Reference Range Interpretation Comments Calcium Level (test code = 01122-7) 8.4 8.4-10.2 [facility] CenterTotal Feovhskbj0175-88-64 20:23:00* Test Item Value Reference Range Interpretation Comments Total Bilirubin (test code = 1975-2) 0.6 0.2-1.2 [facility] CenterAspartate Amino Transf (AST/SGOT) 2018-07-23 20:23:00* Test Item Value Reference Range Interpretation Comments Aspartate Amino Transf (AST/SGOT) (test code = Aspartate Amino Transf (AST/SGOT)) 17 5-34 [facility] CenterAlanine Aminotransferase (ALT/SGPT) 2018-07-23 20:23:00* Test Item Value Reference Range Interpretation Comments Alanine Aminotransferase (ALT/SGPT) (test code = 1742-6) 19 0-55 [facility] CenterTotal Tqooofv4168-87-57 20:23:00* Test Item Value Reference Range Interpretation Comments Total Protein (test code = 2885-2) 6.0 6.5-8.1 L [facility] CenterAlbumin2018-11-17 20:23:00* Test Item Value Reference Range Interpretation Comments Albumin (test code = 1751-7) 3.6 3.5-5.0 [facility] CenterGlobulin2018-11-17 20:23:00* Test Item Value Reference Range Interpretation Comments Globulin (test code = 49883-7) 2.4 2.3-3.5 [facility] CenterAlbumin/Globulin Vfkpy3196-67-92 20:23:00 * Test Item Value Reference Range Interpretation Comments Albumin/Globulin Ratio (test code = 1759-0) 1.5 0.8-2.0 [facility] CenterAlkaline Mgolshnbvri1366-60-54 20:23:00* Test Item Value Reference Range Interpretation Comments Alkaline Phosphatase (test code = 6768-6) 50 40-150 [facility] CenterCT ABDOMEN/PELVIS FG3880-75-53 20:06:00 [facility] [address] [place] [address] Patient Name: PITA AUGUSTIN MR #: [id number] : 1955 Age/Sex: 62/M Req #: [id number] Adm Physician: Ordered by: SONIDO COLUNGA MD Report #: [id number] Location: ER Room/Bed: Procedure: CT/CT ABDOMEN/PELVIS WO Exam Date: 07/23/18 Exam Time: 1955 REPORT STATUS: Signed EXAM: CT ABDOMEN AND PELVIS without IV CONTRAST INDICATION: Left flank pain radiating to left groin COMPARISON: CT of the abdomen and pelvis without IV c ontrast June 20, 2012 TECHNIQUE: The abdomen and pelvis were scanned using a multidetector helical scanner. Coronal and sagittal reformations were obtain ed. Dose modulation, iterative reconstruction, and/or weight based adjustment of the mA/kV was utilized to reduce the radiation dose to as low as reasonably achievable. Renal stone protocol performed. IV Contrast: None Oral Contra st: None CTDIvol has been reviewed. It is below the limits set by the [employer] n Protocol Committee (RPC). FINDINGS: LOWER THORAX: No consolidations LIVER: No masses BILIARY: Normal gallbladder. No ductal dilation. SP MAYE: No masses PANCREAS: No masses ADRENALS: No nodules RIGHT KIDNE Y: There are at least 6 stones throughout the right kidney, the largest is in the inferior pole measuring 3 mm. No hydronephrosis. No ureteral stones. LEFT KIDNEY: There are greater than 10 stones throughout the left kidney. The largest is in the superior pole measuring 3 mm. No hydronephrosis. No ureteral stones. GI TRACT: No wall thickening or obstruction. VESSELS: Mi ld atherosclerotic changes of the abdominal aorta without aneurysm. PERITONEUM /RETROPERITONEUM: No free air or fluid LYMPH NODES: No lymphadenopathy RE PRODUCTIVE ORGANS: Normal BLADDER: Normal SOFT TISSUES: Normal BONES: L eft hip arthroplasty. IMPRESSION: Bilateral nephrolithiasis. No hydrone phrosis. Signed by: Dr. Juan Bright M.D. on 07/23/2018 8:15 PM Dictated By: JUAN BRIGHT MD 14 Transcribed By: CAROLINA on 07/23/182014 COPY TO: SONIDO DIETRICH MD White Blood Bpsds7394-88-66 20:01:00* Test Item Value Reference Range Interpretation Comments White Blood Count (test code = 6690-2) 6.48 4.8-10.8 [facility] CenterRed Blood Pasil1797-69-41 20:01:00* Test Item Value Reference Range Interpretation Comments Red Blood Count (test code = 789-8) 5.63 4.3-5.7 [facility] CenterHemoglobin2018-11-17 20:01:00* Test Item Value Reference Range Interpretation Comments Hemoglobin (test code = 93860-4) 17.4 14.0-18.0 [facility] CenterHematocrit2018-11-17 20:01:00* Test Item Value Reference Range Interpretation Comments Hematocrit (test code = 4544-3) 51.6 38.2-49.6 H [facility] CenterMean Corpuscular Pyjota2819-15-11 20:01:00* Test Item Value Reference Range Interpretation Comments Mean Corpuscular Volume (test code = 787-2) 91.7 81-99 [facility] CenterMean Corpuscular Jsavbaztxd5476-34-39 20:01:00* Test Item Value Reference Range Interpretation Comments Mean Corpuscular Hemoglobin (test code = 785-6) 30.9 28-32 [facility] CenterMean Corpuscular Hemoglobin Concent 2018-07-23 20:01:00* Test Item Value Reference Range Interpretation Comments Mean Corpuscular Hemoglobin Concent (test code = 786-4) 33.7 31-35 [facility] CenterRed Cell Distribution Bntru9738-53-78 20:01:00* Test Item Value Reference Range Interpretation Comments Red Cell Distribution Width (test code = 95603-7) 12.0 11.7 -14.4 [facility] CenterPlatelet Gogsj5712-63-55 20:01:00* Test Item Value Reference Range Interpretation Comments Platelet Count (test code = 777-3) 138 140-360 L [facility] CenterNeutrophils (%) (Auto)2018-07-23 20:01:00 * Test Item Value Reference Range Interpretation Comments Neutrophils (%) (Auto) (test code = 70943-7) 63.5 38.7-80.0 [facility] CenterLymphocytes (%) (Auto)2018-07-23 20:01:00 * Test Item Value Reference Range Interpretation Comments Lymphocytes (%) (Auto) (test code = 736-9) 25.5 18.0-39.1 [facility] CenterMonocytes (%) (Auto)2018-07-23 20:01:00* Test Item Value Reference Range Interpretation Comments Monocytes (%) (Auto) (test code = 5905-5) 6.8 4.4-11.3 [facility] CenterEosinophils (%) (Auto)2018-07-23 20:01:00 * Test Item Value Reference Range Interpretation Comments Eosinophils (%) (Auto) (test code = 713-8) 3.1 0.0-6.0 [facility] CenterBasophils (%) (Auto)2018-07-23 20:01:00* Test Item Value Reference Range Interpretation Comments Basophils (%) (Auto) (test code = 706-2) 0.6 0.0-1.0 [facility] CenterIM GRANULOCYTES %2018-07-23 20:01:00* Test Item Value Reference Range Interpretation Comments IM GRANULOCYTES % (test code = IM GRANULOCYTES %) 0.5 0.0- 1.0 [facility] CenterNeutrophils # (Auto)2018-07-23 20:01:00* Test Item Value Reference Range Interpretation Comments Neutrophils # (Auto) (test code = 751-8) 4.1 2.1-6.9 [facility] CenterLymphocytes # (Auto)2018-07-23 20:01:00* Test Item Value Reference Range Interpretation Comments Lymphocytes # (Auto) (test code = 37071-4) 1.7 1.0-3.2 [facility] CenterMonocytes # (Auto)2018-07-23 20:01:00* Test Item Value Reference Range Interpretation Comments Monocytes # (Auto) (test code = 742-7) 0.4 0.2-0.8 [facility] CenterEosinophils # (Auto)2018-07-23 20:01:00* Test Item Value Reference Range Interpretation Comments Eosinophils # (Auto) (test code = 711-2) 0.2 0.0-0.4 [facility] CenterBasophils # (Auto)2018-07-23 20:01:00* Test Item Value Reference Range Interpretation Comments Basophils # (Auto) (test code = 704-7) 0.0 0.0-0.1 [facility] CenterAbsolute Immature Granulocyte (auto 2018-07-23 20:01:00* Test Item Value Reference Range Interpretation Comments Absolute Immature Granulocyte (auto (rebecca t code = Absolute Immature Granulocyte (auto) 0.03 0-0.1 [facility] CenterUrine WBK9954-29-55 19:28:00* Test Item Value Reference Range Interpretation Comments Urine WBC (test code = 5821-4) 0-5 0-5 [facility] CenterUrine BAG2117-12-19 19:28:00* Test Item Value Reference Range Interpretation Comments Urine RBC (test code = 48838-1) NONE 0-5 [facility] CenterUrine Jrhpscah4645-19-85 19:28:00* Test Item Value Reference Range Interpretation Comments Urine Bacteria (test code = 90388-6) FEW NONE [facility] CenterUrine Epithelial Xiubf7033-40-64 19:28:00 * Test Item Value Reference Range Interpretation Comments Urine Epithelial Cells (test code = 64788-4) RARE NONE [facility] CenterUrine Amorphous Ppcjfzyc3415-52-61 19:28:00* Test Item Value Reference Range Interpretation Comments Urine Amorphous Sediment (test code = 8246-1) FEW FEW [facility] CenterUrine Kelua8342-33-61 19:16:00* Test Item Value Reference Range Interpretation Comments Urine Color (test code = 5778-6) YELLOW YELLOW [facility] CenterUrine Kskjyry8919-83-23 19:16:00* Test Item Value Reference Range Interpretation Comments Urine Clarity (test code = 20902-6) CLEAR CLEAR [facility] CenterUrine Specific Asgtkci3679-54-83 19:16:00 * Test Item Value Reference Range Interpretation Comments Urine Specific [place] (test code = 5811-5) 1.015 1.010-1.02 5 [facility] CenterUrine sE7489-74-66 19:16:00* Test Item Value Reference Range Interpretation Comments Urine pH (test code = 21841-9) 7 5-7 [facility] CenterUrine Leukocyte Tosdotam0073-97-42 19:16:00* Test Item Value Reference Range Interpretation Comments Urine Leukocyte Esterase (test code = 5799-2) NEGATIVE NEGATIVE [facility] CenterUrine Lzpygwu6418-54-66 19:16:00* Test Item Value Reference Range Interpretation Comments Urine Nitrite (test code = 84834-6) NEGATIVE NEGATIVE [facility] CenterUrine Kjytoce1262-14-86 19:16:00* Test Item Value Reference Range Interpretation Comments Urine Protein (test code = 5804-0) NEGATIVE NEGATIVE [facility] CenterUrine Glucose (UA)2018-07-23 19:16:00* Test Item Value Reference Range Interpretation Comments Urine Glucose (UA) (test code = 2349-9) NEGATIVE NEGATIVE [facility] CenterUrine Uftnoqh6821-40-29 19:16:00* Test Item Value Reference Range Interpretation Comments Urine Ketones (test code = 93105-2) NEGATIVE NEGATIVE [facility] CenterUrine Jyaqyjzaobwl4698-37-50 19:16:00* Test Item Value Reference Range Interpretation Comments Urine Urobilinogen (test code = 17001-7) 0.2 0.2-1 [facility] CenterUrine Kwalyoysq8553-55-89 19:16:00* Test Item Value Reference Range Interpretation Comments Urine Bilirubin (test code = 1978-6) NEGATIVE NEGATIVE [facility] CenterUrine Tbouu5388-94-02 19:16:00* Test Item Value Reference Range Interpretation Comments Urine Blood (test code = 41145-1) NEGATIVE NEGATIVE [facility] CenterABDOMEN-[facility]VIEW (KUB)2018-03-24 18:27:00 [facility] [address] [place] [address] Patient Name: PITA AUGUSTIN MR #: [id number] : 0 1955 Age/Sex: 62/M Req #: [id number] Adm Physician: Ordered by: RASHEL MATHEW MD Report #: [id number] Location: [facility] Room/ d: Procedure: [id number] DX/ABDOMEN-1VIEW (KUB) Exam Date: 03/24/18 Exam Time: 1240 REPORT STATUS: S igned PROCEDURE: X-RAY ABDOMEN - KUB COMPARISON: None. INDICA TIONS: CALCULUS OF THE KIDNEY FINDINGS: Nonobstructive bowel gas pa ttern. Stable 3 mm radiopaque nonobstructing calculi in the mid and inferior aspect of the left renal shadow and inferior pole of the right renal shadow. Stable 2 mm nonobstructing calculus in the mid aspect of the right renal shadow. No radiopaque densities project over the expected course of the ureter s or bladder. No acute bony abnormalities. Left total hip replacement. CONCLUSION: Stable bilateral, nonobstructive renal stone burden. Teofilo Patterson M.D. Dictated by: Teofilo Patterson M.D. on 03/24/2018 at 18:27 Electronically approved by: Teofilo Patterson M.D. on 8 at 18:27 Dictated By: TEOFILO PATTERSON MD Electronically Sign ed By: TEOFILO PATTERSON MD on 03/24/18 1827 Transcribed By: ADRIEN on 03/24/18 182 7 COPY TO: RASHEL MATHEW MD ABDOMEN-1VIEW (KUB) [place] [address] Patient Name: PITA AUGUSTIN MR #: [id number] : 1955 Age/Sex: 61/M Req #: [id number] Adm Physician: Ordered by: RASHEL MATHEW MD Report #: [id number] Location: [facility] Room/Bed: Procedure: [id number] DX/ABDOMEN-1VIEW (KUB) Exam Date: 12/29/17 Exam Time: 1020 REPORT STATUS: S igned PROCEDURE: ABDOMEN-1VIEW (KUB) TECHNIQUE: Supine AP abdomen total ing 2 radiographs INDICATION: Kidney stones COMPARISON: [facility], DX, ABDOMEN-1VIEW (KUB), 11/15/2017, 14:39. FINDINGS: See con clusion. CONCLUSION: 1. Stable 3 mm stones at the left mid and infer ior pole and right inferior pole. No new conspicuous calcifications. 2. Lar ge stool volume. 3. No ascites organomegaly. Intact skeleton. Dictat ed by: Leighann Napier M.D. on 12/29/2017 at 12:24 Electronically alex roved by: Leighann Napier M.D. on 12/29/2017 at 12:24 Dict ated By: LEIGHANN NAPIER MD 1224 COPY TO: RASHEL MATHEW MD ABDOMEN-1VIEW ([facility]) [place] [address] Patient Name: PITA AUGUSTIN MR #: [id number] : 1955 Age/Sex: 61/M Req #: [id number] Adm Physician: Ordered by: RASHEL MATHEW MD Report #: [id number] Location: [facility] Room/Bed: Procedure: [id number] DX/ABDOMEN-1VIEW (KUB) Exam Date: 11/15/17 Exam Time: 1346 REPORT STATUS: S igned PROCEDURE: X-RAY ABDOMEN - KUB COMPARISON: 07/06/2017. INDICATIONS: KIDNEY STONE CHECK UP FINDINGS: Bowel: No dilatati on. Moderate burden of stool throughout the colon particularly the hepatic an d splenic flexures. Calcifications: Two calculi in the mid and lower pole of the left kidney measure up to 3 mm. There is a punctate calculus in the l ower pole the right kidney. No calculi along the expected course of the ur eters. Lung bases: Clear. Bones: Degenerative changes of the right hip are stable. Left hip prosthesis is stable. CONCLUSION: Two calculi in the left kidney and a single calculus in the right kidney as cuco cribed above. Dictated by: Rita Fournier M.D. on 11/15/2017 at 17:52 Electronically approved by: Rita Fournier M.D. on 11/15/2017 at 17:52 Dictated By: RITA FOURNIER MD 7459 Transcribed By: ADRIEN on 11/15/17 1 752 COPY TO: RASHEL MATHEW MD ABDOMEN-1VIEW (KUB) [place] [address] Patient Name: PITA AUGUSTIN MR #: [id number] : 1955 Age/Sex: 61/M Req #: [id number] Adm Physician: Ordered by: RASHEL MATHEW MD Report #: [id number] Location: [facility] Room/Bed: Procedure: [id number] DX/ABDOMEN-1VIEW (KUB) Exam Date: Exam Time: REPORT STATUS: Signed EXA M: Abdomen 2 Views INDICATION: COMPARISON: KUB dated 12/04/2016 FINDINGS: Nonobstructive bowel gas pattern. No signs of pneumoperitoneum. B ilateral renal calculi are again seen, the largest in right inferior pole cy uring 9 mm. No acute osseous abnormality. Degenerative changes of right hip. A status post left hip arthroplasty. IMPRESSION: 1. Bilateral renal margarita culi, the largest on today's exam measures 9 mm in the right inferior pole. 2. Nonobstructive bowel gas pattern. Signed by: Dr. Kartik Rodriguez MD on 07/06/2017 12:33 PM Dictated By: KARTIK RODRIGUEZ MD 1233 Transcribed By: CAROLINA on 07/06/17 1233 COPY TO: RASHEL MATHEW MD
--- OUTSIDE RECORDS SUMMARY | 2020-06-18 11:36 | XMS REPORT | Clinical Summary ---
Author Author [facility] Organization [facility] Address Unknown Phone Unavailable Care Team Providers Care Joint Finisher Name Role Phone Escobar Hammond MD PCP Allergies Comments Active Allergy Reactions Severity Noted Date Pt. states medications caused him to have body aches, nausea, and vomiting, shakes,and chills. Also hasn't been able to sleep. Rash Doxycycline 03/16/2019 Pt. states medications caused him to have body aches, nausea, and vomiting, shakes,and chills. Also hasn't been able to sleep. Rash Rifampin 03/16/2019 Medications End Date Status Medication Sig Dispensed Refills Start Date Active potassium citrate Take 10 mEq 0 (UROCIT-K) 10 mEq (1,080 by mouth 9 mg) CR tablet every morning. Active amLODIPine (NORVASC) 10 Take 10 mg by 0 mg tablet mouth nightly. Active escitalopram (LEXAPRO) 10 Take 10 mg by 0 MG tablet mouth every morning. Active rosuvastatin (CRESTOR) 10 Take 10 mg by 0 MG tablet mouth nightly. Active Problems Problem Noted Date Calculus of kidney 08/16/2019 Intractable vomiting 03/15/2019 Encounters Care Team Description Date Type Specialty Rashel Dias MD RIGHT ESWL 08/16/2019 Surgery General Surgery Angely Echols MD Franzen, Christopher George, MD 08/16/2019 Anesthesia General Surgery Event Rashel Dias MD 08/16/2019 Hospital General Surgery Encounter Rashel Dias MD 08/11/2019 Hospital Radiology Encounter Rashel Dias MD Preoperative testing (Primary Dx) 08/11/2019 Pre-Admit Pre-Admission Testi ng Testing Appointment after 06/18/2019 Surgical History Surgery Date Site/Laterality Comments SHOULDER SURGERY BILATERAL HERNIA REPAIR HIP SURGERY 09/06/2004 - Left 09/05/2005 APPENDECTOMY ELBOW SURGERY 09/06/2015 - Bilateral 09/05/2016 JOINT REPLACEMENT INNER EAR SURGERY EXTRACORPOREAL SHOCKWAVE 08/16/2019 Flank/Right Proce dure: RIGHT ESWL; Surgeon: Rashel Dias LITHOTRIPSY (ESWL) MD [place]; Location: [facility] ; Service: Urology; Laterality: Right; Medical History Medical History Date Comments Hyperlipemia Hypertension Sleep apnea no CPAP Cancer (HCC) 1993 melanoma History of recent hospitalization 02/2019 due to antibiotic reactions Renal disorder kidney stones Hypercholesteremia Family History Medical History Relation Name Comments Alzheimer's disease Father Stroke Mother Relation Name Status Comments Father Mother Alive Social History Date Tobacco Use Types Packs/Day Years Used Former Smoker Cigarettes 1 6 Smokeless Tobacco: Former Chew User Comments: states quit 40 yrs ago Drinks/Week oz/Week Comments Alcohol Use socially Yes Sex Assigned at Date Recorded Not on file Last Filed Vital Signs Reading Time Taken Comments Vital Sign 149/97 08/16/2019 2:47 PM [facility]UEPRINT TRIMMER Blood Pressure 70 08/16/2019 2:47 PM [facility] TR[facility] Pulse 36.4 C (97.6 F) 08/16/2019 2:14 PM [facility]UEPRINT TRIMMER Temperature 18 08/16/2019 2:47 PM BLUEPRINT TRIMMER Respiratory Rate 97% 08/16/2019 2:47 PM [facility]UEPRINT TR[facility]MER Oxygen Saturation - - Inhaled Oxygen Concentration 87.7 kg (193 lb 6.4 oz) 08/16/2019 10:59 AM BLUEPRINT TRIMMER Weight 172.7 cm (5' 8") 08/16/2019 10:59 AM BLUEPRINT TRIMMER Height 29.41 08/16/2019 10:59 AM BLUEPRINT TRIMMER Body Mass Index Plan of Treatment Health Maintenance Due Date Last Done Comments COLONOSCOPY SCREENING 2004 SHINGLES VACCINES (#1) 2004 65+ PNEUMOCOCCAL VACCINE 01/01/2020 (1 of 1 - PPSV23) INFLUENZA VACCINE 04/06/2020 Procedures Comments Procedure Name Priority Date/Time Associated Diag nosis TX AN ELECTIVE Routine 08/16/2019 SUPRAGLOTTIC AIRWAY 1:08 PM BLUEPRINT TRIMMER EXTRACORPOREAL SHOCKWAVE 08/16/2019 RENAL CALCUL US LITHOTRIPSY (ESWL) 12:57 PM BLUEPRINT TRIMMER N20.0 Special Needs NEXT MED CONF# [id number] XR ABDOMEN 1 VW Routine 08/11/2019 Preoperative t esting 11:27 AM BLUEPRINT TRIMMER GRAM STAIN Routine 08/11/2019 11:25 AM BLUEPRINT TRIMMER URINE CULTURE Routine 08/11/2019 11:25 AM BLUEPRINT TRIMMER ECG 12-LEAD Routine 08/11/2019 Preoperative te sting 10:36 AM BLUEPRINT TRIMMER TYPE AND SCREEN Routine 08/11/2019 Preoperative t esting 10:12 AM BLUEPRINT TRIMMER HEMOGLOBIN A1C Routine 08/11/2019 Preoperative te sting 10:12 AM BLUEPRINT TRIMMER HC COMPLETE BLD COUNT Routine 08/11/2019 Preopera tive testing W/AUTO DIFF 10:12 AM BLUEPRINT TRIMMER URINALYSIS SCREEN AND Routine 08/11/2019 Preopera tive testing MICROSCOPY, WITH REFLEX 10:12 AM BLUEPRINT TRIMMER TO CULTURE after 06/18/2019 Results * Airway (08/16/2019 1:08 PM BLUEPRINT TRIMMER) Narrative Performed At Fadi Armenta CRNA 08/16/2019 1: 08 PM Airway Performed by: Fadi Armenta CRNA Authorized by: Angely Echols MD Location: OR Urgency: Elective Difficult Airway: No Anesthesiologist: Angely Echols MD Resident/CASING CLEANER/AA: Fadi Armenta CRNA Performed by: resident/CASING CLEANER/AA Preoxygenated with 100% O2: Yes Mask Ventilation: Not attempted Final Airway Type: Supraglottic airwa y Final LMA: Unique LMA Size: 5 Number of Attempts at Approach: 1 Atraumatic, teeth intact * XR Abdomen 1 Vw (08/11/2019 11:27 AM BLUEPRINT TRIMMER) Specimen Narrative Performed At EXAMINATION: XR ABDOMEN 1 VW [facility] CLINICAL HISTORY: Z01.818 Encounter f or other preprocedural examination, preop COMPARISON: None. IMPRESSION: Nonspecific bowel gas pattern. No dilat ed loops of bowel. Severe osteoarthritic degenerative greber ges noted within the right hip. The patient is status post left hip arthrop lasty. The lung bases are clear. [id number] Procedure Note Hm Interface, Radiology Results Incoming - 08/11/2019 11:36 AM BLUEPRINT TRIMMER EXAMINATION: XR ABDOMEN 1 VW CLINICAL HISTORY: Z01.818 Encounter for other preprocedural examination, preop COMPARISON: None. IMPRESSION: Nonspecific bowel gas pattern. No dilated loops of bowel. Severe osteoarthritic degenerative changes noted within the right hip. The patient is status post left hip arthroplasty. The lung bases are clear. [id number] Performing Organization Address City/[facility]/ZIP Code P denia Number [facility] [address] [place] [address] * Gram stain (08/11/2019 11:25 AM BLUEPRINT TRIMMER) Pathologist [facility] Gram stain No WBC's or organisms seen. [facility] result Comment: WORSHIP Specimen Information HOSPITAL Specimen Source: Urine Specimen Site: Clean catch Specimen Urine Performing Organization Address [facility] P denia Number [facility] DEPARTMENT OF [address] [place] [address] PATHOLOGY AND [facility] [place] [address] HOSPITAL * Urine culture (08/11/2019 11:25 AM BLUEPRINT TRIMMER) [facility] Urine culture Mixed alonso <=10-3 col/cc [facility]ER isolate Comment: WORSHIP Specimen Information HOSPITAL Specimen Source: Urine Specimen Site: Clean catch Specimen Urine Performing Organization Address [facility] P denia Number [facility] DEPARTMENT OF [address] [place] [address] PATHOLOGY [place] [address] HOSPITAL * ECG 12 lead (08/11/2019 10:36 AM BLUEPRINT TRIMMER) Ventricular 73 [facility] MUSE rate Atrial rate 73 [facility] MUSE TX interval 176 [facility] QRSD interval 84 [facility] QT interval 378 [facility] MUSE QTC interval 416 [facility] MUSE P axis 1 51 [facility] MUSE QRS axis 1 22 [facility] MUSE T wave axis 37 [facility] MUSE EKG impression Normal sinus rhythm-Normal [facility] MUSE ECG-In automated comparison with ECG of 10-FEB-2019 07:42,-Nonspecific T wave abnormality no longer evident in Inferior leads-Nonspecific T wave abnormality no longer evident in Anterior leads- Specimen Narrative Performed At This result has an attachment that is n ot available. Performing Organization Address City/[facility]/ZIP Code P denia Number [facility] MUSE [address] [place] [address] * Urinalysis screen and microscopy, with reflex to culture (08/11/2019 10:12 AM BLUEPRINT TRIMMER) Specimen site Clean catch [facility] Color, UA Yellow [facility] Appearance, UA Clear [facility] Specific 1.015 1.001 - 1.035 [facility]ER gravity, UA [facility] pH, UA 7.0 5.0 - 8.5 [facility] Protein, UA Negative Negative [facility] Glucose, UA Negative Negative [facility] Ketones, UA Negative Negative [facility] Bilirubin, UA Negative Negative [facility] Blood, UA Negative Negative [facility] Nitrite, UA Negative Negative [facility] Urobilinogen, Negative <2.0 [facility] Leukocyte Negative Negative [facility] esterase, [facility] Epithelial None seen Few /HPF [facility] cells, [facility] Round Few 0 - 1 /HPF [facility]ER epithelial [facility] cells, [facility] WBC, UA 6-10 (H) 0 - 1 /HPF [facility] RBC, UA 0-5 0 - 5 /HPF [facility] Bacteria, UA None seen None seen [facility] Yeast, UA None seen [facility] Yeast with None seen [facility]ER pseudohyphae, [facility] Specimen Urine Performing Organization Address [facility]/ZIP Code [place] [address] [address] [place], [place] [address] PATHOLOGY AND GENOMIC MEDICINE [facility] [address] [place] [address] [facility] * CBC with platelet and differential (08/11/2019 10:12 AM BLUEPRINT TRIMMER) WBC 5.67 4.50 - 11.00 k/uL [facility] RBC 6.42 (H) 4.40 - 6.00 m/uL [facility] HGB 18.6 (H) 14.0 - 18.0 g/dL [facility] HCT 57.9 (H) 41.0 - 51.0 % [facility] MCV 90.2 82.0 - 100.0 fL [facility] MCH 29.0 27.0 - 34.0 pg [facility] MCHC 32.1 31.0 - 37.0 g/dL [facility] RDW - SD 42.2 37.0 - 55.0 fL [facility] MPV 11.3 8.8 - 13.2 fL [facility] Platelet count 142 (L) 150 - 400 k/uL [facility] Nucleated RBC 0.00 /100 WBC [facility] Neutrophils 67.9 39.0 - 69.0 % [facility] Lymphocytes 19.4 (L) 25.0 - 45.0 % [facility] Monocytes 9.0 0.0 - 10.0 % [facility] Eosinophils 2.8 0.0 - 5.0 % [facility] Basophils 0.5 0.0 - 1.0 % [facility] Specimen Blood Performing Organization Address City/[facility] P denia Number [facility] DEPARTMENT OF [address] [place] [address] PATHOLOGY AND GENOMIC MEDICINE [address] * Type and screen (08/11/2019 10:12 AM BLUEPRINT TRIMMER) ABO grouping O [facility] Rh type POS [facility] Antibody screen NEG [facility] Specimen Blood Performing Organization Address [facility] P denia Number [address] [place] [address] PATHOLOGY AND GENOMIC MEDICINE [address] * Hemoglobin A1c (08/11/2019 10:12 AM BLUEPRINT TRIMMER) Hemoglobin A1C 5.3 4.0 - 5.6 % [facility] Comment: [facility] HbA1c cutoffs for diagnosing [facility] diabetes: 4.0% - 5.6% = normal 5.7% - 6.4% = increased risk for diabetes (prediabetes)9 >=6.5% = diabetes9 Goals for glycemic control (ADA 2016) < 7.0% Target for non adults with diabetes. More or less stringent targets may be appropriate for individual patients. <7.5% Target for Children and adolescents with type 1 diabetes. Specimen Blood Performing Organization Address City/State/ZIP Code [place] [address] [place], [place] [address] PATHOLOGY AND GENOMIC MEDICINE [facility] [employer] [address] [place] [address] [facility] after 06/18/2019 Insurance Type Payer Benefit Subscriber ID Effective Phone Address Plan / Dates Group PPO BCBS BCBS [id number] 2019- CHOICE Present PPO/JASWANT MARSHALL PPO Advance Directives For more information, please contact: [phone] Patient Emergency Physician Explanation Type Date Recorded Advance Directives, 12/01/2016 6:30 PM Living Will and Medical Power of Crusher Plant Operator Advance Directives, 03/16/2019 6:11 AM Living Will and Medical Power of Crusher Plant Operator
[2020-06-18 11:37] LABS: PARTIAL THROMBOPLASTIN TIME 25.3 seconds (23.8-35.5)
[2020-06-18 11:43] LABS: ALBUMIN 3.9 g/dL (3.5-5.0); ALBUMIN/GLOBULIN RATIO 1.5 (0.8-2.0); ANION GAP 14.9 mmol/L (8-16); CALCIUM 8.4 mg/dL (8.4-10.2); CREATININE, SERUM 1.21 mg/dL (0.72-1.25); POTASSIUM 3.9 mmol/L (3.5-5.1)
[2020-06-18] MEDS ORDERED: HYDRALAZINE HCL 20 MG/ML VIAL IV STA (11:52)
[2020-06-18] MEDS ORDERED: HYDROCODONE/APAP 7.5MG-325MG 1 EA TAB PO ONE (12:45)
--- NOTE | 2020-06-18 14:10 | Emergency Department Note ---
History of Present Illnes History of Present Illness Chief Complaint: General Medicine Complaints History of Present Illness This is a 64 year old male PATIENT IN FROM HOME WITH COMPLAINTS OF HEADACHE, NAUSEA, AND VOMITING SINCE 0400; PATIENT HAD A HEART CATH AT [facility] YESTERDAY THAT WAS CLEAN; EKG SHOWS NSR UPON ARRIVAL. PATIENT ALERT AND ORIENTED, RESP EVEN AND NONLABORED, RATES PAIN 10/10. Historian: Patient, Hvac Commercial Salesperson/EMS Arrival Mode: [facility] Banana Room Cutter Required: No Onset (how long ago): hour(s) Location: FRONTAL HEAD Quality: ACHE Radiation: Reports non-radiation Severity: severe Onset quality: gradual Timing of current episode: constant Progression: unchanged Chronicity: new Context: Denies recent illness Relieving factors: none Exacerbating factors: none Associated symptoms: Reports denies other symptoms Past Medical/Family History Physician Review I have reviewed the patient's past medical and family history. Any updates have been documented here. Past Medical History Recent Fever: No Clinical Suspicion of Infectio: No New/Unexplained Change in Ment: No Past Medical History: Hypertension, Kidney Stones Other Medical History: HIGH CHOLESTEROL Past Surgical History: PCI, Hernia Repair Other Surgery: LEFT HIP REPLACEMENT, BILATERAL SHOULDER SURGERY, HERNIA REPAIR. BILATERAL URETERAL STENTS Social History Smoking Cessation: Never Smoker Counseling Performed: No Alcohol Use: None Any Illegal Drug Use: No TB Exposure/Symptoms: No Physically hurt or threatened: No Family History Family history of heart diseas: No Other Last Tetanus: UTD Any Pre-Existing Lines (PICC,: No Review of Systems Review of Systems Constitutional: Reports no symptoms EENTM: Reports no symptoms Cardiovascular: Reports no symptoms Respiratory: Reports no symptoms Gastrointestinal: Reports no symptoms Genitourinary: Reports no symptoms Musculoskeletal: Reports no symptoms Integumentary: Reports no symptoms Neurological: Reports as per HPI, Reports headache Psychological: Reports no symptoms Endocrine: Reports no symptoms Hematological/Lymphatic: Reports no symptoms Physical Exam Related Data Allergies: Coded Allergies: rifampin (Verified Allergy, Severe, HEADACHE, 06/18/20) Triage Vital Signs Vital Signs Date Time Temp Pulse Resp B/P (MAP) Pulse Ox O2 Delivery O2 Flow Rate FiO2 06/18/20 10:03 97.8 80 16 160/108 98 Room Air Vital signs reviewed: Yes Physical Exam CONSTITUTIONAL Constitutional: Present well-developed, Present well-nourished HENT HENT: Present normocephalic, Present atraumatic, Present oropharynx clear/moist, Present nose normal HENT L/R: Present left ext ear normal, Present right ext ear normal EYES Eyes: Reports PERRL, Reports conjunctivae normal NECK Neck: Present ROM normal, Present supple; Absent carotid bruit PULMONARY Pulmonary: Present effort normal, Present breath sounds normal CARDIOVASCULAR Cardiovascular: Present regular rhythm, Present heart sounds normal, Present capillary refill normal, Present normal rate GASTROINTESTINAL Abdominal: Present soft, Present nontender, Present bowel sounds normal GENITOURINARY Genitourinary: Present exam deferred SKIN Skin: Present warm, Present dry MUSCULOSKELETAL Musculoskeletal: Present ROM normal NEUROLOGICAL Neurological: Present alert, Present oriented x 3, Present no gross motor or sensory deficits PSYCHOLOGICAL Psychological: Present mood/affect normal, Present judgement normal Results Laboratory Result Diagram: 06/18/20 1120 06/18/20 1120 Laboratory Laboratory Tests Test 06/18/20 11:20 White Blood Count 9.16 x10e3/uL (4.8-10.8) Red Blood Count 5.47 x10e6/uL (4.3-5.7) Hemoglobin 16.8 g/dL (14.0-18.0) Hematocrit 51.3 % (38.2-49.6) Mean Corpuscular Volume 93.8 fL (81-99) Mean Corpuscular Hemoglobin 30.7 pg (28-32) Mean Corpuscular Hemoglobin Concent 32.7 g/dL (31-35) Red Cell Distribution Width 12.8 % (11.7-14.4) Platelet Count 162 x10e3/uL (140-360) Neutrophils (%) (Auto) 86.0 % (38.7-80.0) Lymphocytes (%) (Auto) 7.9 % (18.0-39.1) Monocytes (%) (Auto) 5.0 % (4.4-11.3) Eosinophils (%) (Auto) 0.3 % (0.0-6.0) Basophils (%) (Auto) 0.4 % (0.0-1.0) Neutrophils # (Auto) 7.9 (2.1-6.9) Lymphocytes # (Auto) 0.7 (1.0-3.2) Monocytes # (Auto) 0.5 (0.2-0.8) Eosinophils # (Auto) 0.0 (0.0-0.4) Basophils # (Auto) 0.0 (0.0-0.1) Absolute Immature Granulocyte (auto 0.04 x10e3/uL (0-0.1) Prothrombin Time 13.4 seconds (11.9-14.5) Prothromb Time International Ratio 0.97 Activated Partial Thromboplast Time 25.3 seconds (23.8-35.5) Sodium Level 141 mmol/L (136-145) Potassium Level 3.9 mmol/L (3.5-5.1) Chloride Level 103 mmol/L (98-107) Carbon Dioxide Level 27 mmol/L (22-29) Anion Gap 14.9 mmol/L (8-16) Blood Urea Nitrogen 14 mg/dL (7-26) Creatinine 1.21 mg/dL (0.72-1.25) Estimat Glomerular Filtration Rate 60 ML/MIN (60-) BUN/Creatinine Ratio 12 (6-25) Glucose Level 110 mg/dL (74-118) Calcium Level 8.4 mg/dL (8.4-10.2) Total Bilirubin 0.6 mg/dL (0.2-1.2) Aspartate Amino Transf (AST/SGOT) 15 IU/L (5-34) Alanine Aminotransferase (ALT/SGPT) 17 IU/L (0-55) Alkaline Phosphatase 54 IU/L (40-150) Total Protein 6.5 g/dL (6.5-8.1) Albumin 3.9 g/dL (3.5-5.0) Globulin 2.6 g/dL (2.3-3.5) Albumin/Globulin Ratio 1.5 (0.8-2.0) Lab results reviewed: Yes Imaging Imaging results reviewed: Yes Procedures 12 Lead ECG Interpretation ECG Interpretation : ECG: ECG 1 Banana Room Cutter: Interpreted by ED physician Date: Jun 18, 2020 Time: 10:14 Rhythm: sinus rhythm Rate: normal BPM: 78 QRS axis: normal ST segments normal: Yes T waves normal: Yes Clinical Impression: normal ECG Assessment & Plan Medical Decision Making MDM HEADACHE AFTER CARDIAC CATH YESTERDAY - CHECK CBC, CHEM, CT BRAIN - EVAL RENAL INSUFF, CEREBRAL BLEED Reassessment Reassessment IMPROVED, DC HOME FIORICET, PHENERGAN, F/U PCP Assessment & Plan Final Impression: (1) Headache Depart Disposition: HOME, SELF-CARE Last Vital Signs Date Time Temp Pulse Resp B/P (MAP) Pulse Ox O2 Delivery O2 Flow Rate FiO2 06/18/20 12:15 163/106 06/18/20 11:52 82 14 96 Room Air 06/18/20 10:03 97.8 Home Meds Reported Medications Amlodipine Besylate (AMLODIPINE BESYLATE) 10 Mg Tablet, 10 MG PO DAILY, #30 TAB 02/15/16 Rosuvastatin Calcium (CRESTOR) 10 Mg Tab, PO HS THERAPEUTICALLY SUBSTITUTED WITH SIMVASTATIN 40MG 07/19/15 Medications in the ED Ketorolac Tromethamine 15 mg ONCE STAT IV Last administered on 06/18/20at 11:11; Admin Dose 15 MG; Start 06/18/20 at 10:29; Stop 06/18/20 at 10:40; Status DC Metoclopramide HCl 10 mg ONCE ONCE IV Last administered on 06/18/20at 11:11; Admin Dose 10 MG; Start 06/18/20 at 10:30; Stop 06/18/20 at 10:40; Status DC Diphenhydramine HCl 25 mg NOW ONCE IV Last administered on 06/18/20at 11:11; Admin Dose 25 MG; Start 06/18/20 at 10:30; Stop 06/18/20 at 10:40; Status DC Hydralazine HCl 10 mg NOW STAT IV Last administered on 06/18/20at 12:15; Admin Dose 10 MG; Start 06/18/20 at 11:52; Stop 06/18/20 at 12:08; Status DC Acetaminophen/ Hydrocodone Bitart 1 ea NOW ONCE PO Last administered on 06/18/20at 13:04; Admin Dose 1 EA; Start 06/18/20 at 12:45; Stop 06/18/20 at 12:47; Status DC KIKA MONSON MD Jun 18, 2020 14:10
[2020-06-18 14:13] VITALS: BP 124/72
== END 2020-06-18 14:50 | disposition home or self-care (01) ==
LOC: ER 11:32
DX: R51.9 Headache, unspecified (principal); R11.2 Nausea with vomiting, unspecified; I10 Essential (primary) hypertension; E78.00 Pure hypercholesterolemia, unspecified; Z87.442 Personal history of urinary calculi; Z96.642 Presence of left artificial hip joint
CPT/HCPCS: 36415; 70450; 80053; 85025; 85610; 85730; 93005; 99284; J0360

== ENCOUNTER → 2020-08-05 | Outpatient (CLI) | payer MEDICARE | LOC: RAD 10:25 | PROVIDERS: ATTEND Urology | DX: N20.0 Calculus of kidney (principal) | CPT/HCPCS: 74018 ==

== ENCOUNTER → 2020-11-05 | Outpatient (CLI) | payer MEDICARE | LOC: RAD 12:18 | PROVIDERS: ATTEND Urology | DX: N20.0 Calculus of kidney (principal); Z96.642 Presence of left artificial hip joint | CPT/HCPCS: 74018 ==

== ENCOUNTER → 2021-03-03 | Outpatient (CLI) | payer MEDICARE | LOC: RAD 15:18 | PROVIDERS: ATTEND Urology | DX: N20.0 Calculus of kidney (principal) | CPT/HCPCS: 74018 ==

== ENCOUNTER → 2021-07-07 | Outpatient (CLI) | payer MEDICARE | LOC: RAD 10:00 | PROVIDERS: ATTEND Urology | DX: N20.0 Calculus of kidney (principal) | CPT/HCPCS: 74018 ==

== ENCOUNTER → 2022-01-19 | Outpatient (CLI) | payer MEDICARE | LOC: RAD 11:33 | PROVIDERS: ATTEND Urology | DX: N20.0 Calculus of kidney (principal) | CPT/HCPCS: 74018 ==

== ENCOUNTER 2024-10-08 09:12 | Emergency (ER) | payer MEDICARE ==
[~2024-10-08] VITALS: Ht 172.7 cm; Wt 81.6 kg
[~2024-10-08 09:12] MED LIST changes: +CEPHALEXIN500 MG PO; +METRONIDAZOLE500 MG PO; +ONDANSETRON ODT4 MG PO
[2024-10-08 09:36] VITALS: TEMP 97.4
[2024-10-08 11:08] LABS: BILIRUBIN,URINE SMALL (NEGATIVE); CLARITY,URINE CLOUDY (CLEAR); COLOR,URINE RED (YELLOW); GLUCOSE, URINE NEGATIVE (NEGATIVE); KETONES,URINE NEGATIVE (NEGATIVE); LEUKOCYTE ESTERASE ,URINE TRACE (NEGATIVE); NITRITE,URINE NEGATIVE (NEGATIVE); PH,URINE 8.5 (5 - 7); PROTEIN,URINE DIPSTICK 2+ (NEGATIVE); URINE UROBILINOGEN 1 mg/dL (0.2 - 1)
[2024-10-08 11:19] LABS: EPITHELIAL CELLS,URINE RARE /LPF; RBC,URINE >50 /HPF (0-5); WBC,URINE (MAN) 0-5 /HPF (0-5)
[2024-10-08] MEDS ORDERED: FLOMAX0.4 MG PO (11:45)
[2024-10-08 11:59] VITALS: PULSE 71; RESP 18; O2SAT 96
== END 2024-10-08 12:01 | disposition home or self-care (01) ==
LOC: ER 09:20
DX: R33.9 Retention of urine, unspecified (principal); R31.9 Hematuria, unspecified; I10 Essential (primary) hypertension; E78.5 Hyperlipidemia, unspecified; Z85.51 Personal history of malignant neoplasm of bladder; Z96.643 Presence of artificial hip joint, bilateral
CPT/HCPCS: 81001; 87086; 99282

== ENCOUNTER → 2025-02-19 | Outpatient (REF) | payer MEDICARE ==
[~2025-02-19] MED LIST changes: +ALBUTEROL SULF 0.083% NEB SOLN 3 ML NEB ONE; +FLOMAX0.4 MG PO
== END ==
LOC: EDSTATUS 02-15 10:00 → RESP 12:48
PROVIDERS: ATTEND Nurse Practitioner Family
DX: R06.02 Shortness of breath (principal); I82.409 Acute embolism and thrombosis of unspecified deep veins of unspecified lower extremity; I26.99 Other pulmonary embolism without acute cor pulmonale; Z86.03 Personal history of neoplasm of uncertain behavior; Z85.46 Personal history of malignant neoplasm of prostate
CPT/HCPCS: 94060; 94727; 94729